=== PATIENT | female | born 1990 | race African-American/Black ===

== ENCOUNTER 2020-10-29 08:07 | Emergency (ER) | payer OTHER ==
[~2020-10-29] VITALS: Ht 160 cm; Wt 54.0 kg
[2020-10-29 09:00] LABS: CLARITY URINE CLEAR (CLEAR); COLOR URINE YELLOW (YELLOW); KETONES URINE TRACE (NEGATIVE); LEUKOCYTE ESTERASE URINE NEGATIVE (NEGATIVE); NITRITE URINE NEGATIVE (NEGATIVE); OCCULT BLOOD URINE NEGATIVE (NEGATIVE); PROTEIN URINE NEGATIVE (NEGATIVE); SPECIFIC GRAVITY URINE 1.024 (1.005-1.030); UROBILINOGEN URINE 0.2 E.U./dL (0.2-1.0)
[2020-10-29 09:02] LABS: BASOPHILS % 1.1 % (0.0-2.0); EOSINOPHILS % 3.9 % (0.0-5.0); HEMATOCRIT. 34.1 % (36.0-48.0); HEMOGLOBIN. 11.2 g/dL (12.0-16.0); LYMPHOCYTES % 34.2 % (20.0-50.0); MEAN CORPUSCULAR HEMOGLOBIN 23.9 pg (28.0-32.0); MEAN PLATELET VOLUME 9.6 fl (7.4-10.4); MONOCYTES % 10.2 % (2.0-8.0); NEUTROPHILS % 50.6 % (40.0-76.0); PLATELET 180 x1000/uL (130-400); RED BLOOD CELL COUNT 4.67 mill/uL (4.2-5.4)
[2020-10-29 09:04] LABS: CHLORIDE 111 mEq/L (98-107)
[2020-10-29 10:30] VITALS: BP 106/48
[2020-10-29] MEDS ORDERED: KEPP500 MT (10:52)
== END 2020-10-29 11:24 | disposition home or self-care (01) ==
LOC: ER 08:07
DX: R55 Syncope and collapse (principal); R94.31 Abnormal electrocardiogram [ECG] [EKG]; Z98.890 Other specified postprocedural states
CPT/HCPCS: 36415; 70450; 80053; 81003; 85025; 93005; 99285; Z7610

== ENCOUNTER 2021-05-11 16:34 | Observation (INO) | payer OTHER ==
[~2021-05-11] VITALS: Ht 154.9 cm; Wt 68.9 kg
[~2021-05-11 16:34] MED LIST: KEPP500 MT
[2021-05-11] MEDS ORDERED: FOLI0.4T6 MT (17:20)
[2021-05-11] MEDS ORDERED: PNV1TABL76 MT (17:21)
== END 2021-05-11 18:30 | disposition home or self-care (01) ==
LOC: 8 EST LDRP 16:34
PROVIDERS: ADMIT Obstetrics & Gynecology; ATTEND Obstetrics & Gynecology
DX: O26.893 Other specified pregnancy related conditions, third trimester (principal); R51.9 Headache, unspecified; O62.9 Abnormality of forces of labor, unspecified; Z20.822 Contact with and (suspected) exposure to COVID-19; Z3A.31 31 weeks gestation of pregnancy
CPT/HCPCS: 59025; 87426; G0378; 99281; G0379